=== PATIENT | female | born 1980 | race Caucasian/White ===

== ENCOUNTER → 2016-10-21 | Outpatient (CLI) | payer MEDICAID ==
[~2016-10-21] MED LIST: HYDR-4246 PO; IBUP-1547 PO; PREN1TAB73 PO
== END ==
LOC: OBOBS 08:00 → MERGE 11-05 07:22 → EDSTATUS 11-05 21:43
PROVIDERS: ATTEND Obstetrics & Gynecology
DX: Z53.9 Procedure and treatment not carried out, unspecified reason (principal)